=== PATIENT | male | born 1970 ===

== ENCOUNTER 2024-06-14 07:13 | Day surgery (SDC) | payer OTHER ==
[~2024-06-14 07:13] MED LIST: VYTORIN 10-201 EACH PO
[2024-06-14] MEDS ORDERED: KETO10TA2 PO (07:43)
[2024-06-14] MEDS ORDERED: TRAMADOL HCL50 MG PO (07:43)
[2024-06-14] MEDS ORDERED: MIRALAX17 GM PO (07:43)
[2024-06-14] MEDS ORDERED: TYLENOL ARTHRI650 MG PO (07:43)
[2024-06-14] MEDS ORDERED: CEFAZOLIN SODIUM 1,000 MG VIAL IV ONE (10:30)
[2024-06-14] MEDS ORDERED: BUPIVACAINE HCL 30 ML VIAL IJ ONE (10:30)
[2024-06-14] MEDS ORDERED: LIDOCAINE HCL 1%/EPINEPHRINE 20ML VIAL IJ ONE (10:30)
[2024-06-14] MEDS ORDERED: KETOROLAC TROMETHAMINE 30 MG VIAL IV ONE (10:45)
[2024-06-14] MEDS ORDERED: MORPHINE SULFATE 4 MG/ML VIAL IV ONE ×2 (12:10→12:40)
== END 2024-06-14 16:00 | disposition home or self-care (01) ==
LOC: CIR.AMB 07:13
PROVIDERS: ATTEND Surgery
DX: K40.90 Unilateral inguinal hernia, without obstruction or gangrene, not specified as recurrent (principal); K42.0 Umbilical hernia with obstruction, without gangrene; E78.00 Pure hypercholesterolemia, unspecified
CPT/HCPCS: 49650; 49592; C1781

== ENCOUNTER 2024-09-06 07:50 | Outpatient (CLI) | payer OTHER ==
[~2024-09-06 07:50] MED LIST changes: +KETO10TA2 PO; +MIRALAX17 GM PO; +TRAMADOL HCL50 MG PO; +TYLENOL ARTHRI650 MG PO
== END 2024-09-06 07:52 | disposition home or self-care (01) ==
LOC: SONOGRAMA 07:50
PROVIDERS: ATTEND Pathology Anatomic Pathology & Clinical Pathology
DX: D34 Benign neoplasm of thyroid gland (principal); E07.89 Other specified disorders of thyroid; E04.1 Nontoxic single thyroid nodule